=== PATIENT | female | born 1955 | race Caucasian/White ===

== ENCOUNTER 2016-12-28 10:37 | Emergency (ER) | payer OTHER ==
--- NOTE | 2016-12-28 11:30 | Emergency Department Record ---
History of Present Illness - General Chief complaint: Nausea, Vomiting, Diarrhea Stated complaint: LOOSE STOOLS Time Seen by Provider: 12/28/16 11:14 Source: Patient, RN notes reviewed Mode of Arrival: Ambulatory - History of Present Illness Initial comments: abdominal pain and diarrhea and seen at [facility] and BP was low. the diarrhea started 3 days ago 10-20times per day and abdominal cramping and upset stomach. PSH gallbladder,appendectomy. MD complaint: Diarrhea Onset/Timin -: Days(s) Description of Vomiting: Watery Associated Abdominal Pain: Yes Location: Periumbilcal Radiation: None Severity: Severe Quality: Cramping Consistency: Constant Improves with: None Worsens with: None Associated Symptoms: Headaches, Loss of appetite, Nausea/vomiting - Related Data Home Medications Medication Instructions Recorded Confirmed Last Taken Aspirin [Aspirin EC] 81 mg PO DAILY 08/20/14 12/28/16 12/27/16 Atorvastatin Calcium [Lipitor] 10 mg PO DAILY 08/20/14 12/28/16 12/27/16 Metformin HCl [Glucophage Ir] 500 mg PO DAILYWM 07/17/16 12/28/16 12/27/16 Previous Rx's Medication Instructions Recorded Olmesartan/Hydrochlorothiazide 0.5 each PO DAILY #30 tablet 04/08/15 [Benicar Hct 20-12.5 mg Tablet] Allergies Allergy/AdvReac Type Severity Reaction Status Date / Time No Known Drug Allergies Allergy Verified 12/28/16 10:45 Travel Screening - Travel/Exposure Within Last 30 Days Have you traveled within the last 30 days?: No Review of Systems Reviewed: No additional complaints except as noted below Constitutional: Reports: As per HPI. Denies: Chills, Fever, Malaise, Night sweats, Weakness, Weight change Eyes: Reports: As per HPI. Denies: Eye discharge, Eye pain, Photophobia, Vision change ENT: Reports: As per HPI. Denies: Congestion, Dental pain, Ear pain, Epistaxis , Hearing loss, Throat pain Respiratory: Reports: As per HPI. Denies: Cough, Dyspnea, Hemoptysis, Stridor, Wheezes Cardiovascular: Reports: As per HPI. Denies: Arrhythmia, Chest pain, Dyspnea on exertion, Edema, Murmurs, Orthopnea, Palpitations, Paroxysmal nocturnal dyspnea, Rheumatic Fever, Syncope Endocrine: Reports: As per HPI. Denies: Fatigue, Heat or cold intolerance, Polydipsia, Polyuria Gastrointestinal: Reports: As per HPI, Diarrhea, Nausea. Denies: Abdominal pain , Constipation, Hematemesis, Hematochezia, Melena, Vomiting Genitourinary: Reports: As per HPI. Denies: Abnormal menses, Discharge, Dyspareunia, Dysuria, Frequency, Hematuria, Incontinence, Retention, Urgency Musculoskeletal: Reports: As per HPI. Denies: Arthralgia, Back pain, Gout, Joint swelling, Myalgia, Neck pain Skin: Reports: As per HPI. Denies: Bruising, Change in color, Change in hair/ nails, Lesions, Pruritus, Rash Neurological: Reports: As per HPI. Denies: Abnormal gait, Confusion, Headache, Numbness, Paresthesias, Seizure, Tingling, Tremors, Vertigo, Weakness Psychiatric: Reports: As per HPI. Denies: Anxiety, Auditory hallucinations, Depression, Homicidal thoughts, Suicidal thoughts, Visual hallucinations Hematological/Lymphatic: Reports: As per HPI. Denies: Anemia, Blood Clots, Easy bleeding, Easy bruising, Swollen glands Past Medical History - SOCIAL HISTORY Smoking Status: Former smoker Alcohol Use: None Drug Use: None - RESPIRATORY Hx Respiratory Disorders: No - CARDIOVASCULAR Hx Cardio Disorders: Yes Hx Hypertension: Yes Comment:: hypercholesteremia - NEURO Hx Neuro Disorders: No - GI Hx GI Disorders: No - Hx Genitourinary Disorders: No - ENDOCRINE Hx Endocrine Disorders: Yes Hx Diabetes: Yes (NIIDDM) - MUSCULOSKELETAL Hx Musculoskeletal Disorders: No - PSYCH Hx Psych Problems: No - HEMATOLOGY/ONCOLOGY Hx Hematology/Oncology Disorders: No Family Medical History Any Significant Family History?: Yes Hx Cancer: Brother/Sister Hx Heart Disease: Father Physical Exam - General General Appearance: Alert, Oriented x3, Cooperative, No acute distress - Head Head exam: Normal inspection - Eye Eye exam: Normal appearance, PERRL Pupils: Normal accommodation - ENT ENT exam: Normal exam, Mucous membranes moist, Normal external ear exam, Normal orophraynx, TM's normal bilaterally Ear exam: Normal external inspection. negative: External canal tenderness Nasal Exam: Normal inspection. negative: Discharge, Sinus tenderness Mouth exam: Normal external inspection, Tongue normal Teeth exam: Normal inspection. negative: Dental caries Throat exam: Normal inspection. negative: Tonsillar erythema, Tonsillar exudate - Neck Neck exam: Normal inspection, Full ROM. negative: Tenderness - Respiratory Respiratory exam: Normal lung sounds bilaterally. negative: Respiratory distress - Cardiovascular Cardiovascular Exam: Regular rate, Normal rhythm, Normal heart sounds - GI/Abdominal GI/Abdominal exam: Soft, Normal bowel sounds. negative: Tenderness - Rectal Rectal exam: Deferred - exam: Deferred - Extremities Extremities exam: Normal inspection, Full ROM, Normal capillary refill. negative: Tenderness - Back Back exam: Reports: Normal inspection, Full ROM. Denies: Muscle spasm, Rash noted, Tenderness - Neurological Neurological exam: Alert, Normal gait, Oriented X3, Reflexes normal - Psychiatric Psychiatric exam: Normal affect, Normal mood - Skin Skin exam: Dry, Intact, Normal color, Warm Course Vital Signs 12/28/16 10:41 Temperature 97.5 F L Pulse Rate 93 H Respiratory 22 Rate Blood Pressure 82/57 Pulse Ox 95 Medical Decision Making - Data Complexity MDM Data: Labs Ordered and/or Reviewed (rotovirus positive) - Lab Data Result diagrams: 12/28/16 10:50 12/28/16 10:50 Disposition Clinical Impression: Gastroenteritis Disposition: Home, Self-Care Condition: (1) Good Instructions: Acute Nausea and Vomiting (ED), Gastroenteritis (ED) Additional Instructions: follow up with family push fluids and bland diet Forms: Patient Portal Access Time of Disposition: 13:32
[2016-12-28] MEDS ORDERED: ONDANSETRON HCL IV 4 MG/2 ML VIAL IV ONE (11:39)
[2016-12-28] MEDS ORDERED: 0.9 % SODIUM CHLORIDE 1,000 ML BAG IV ONE (11:39)
[2016-12-28 11:51] LABS: BASO % 0.4 % (0-6); GRAN % 75.4 % (47-80); HEMATOCRIT 44.2 % (35.0-47.0); HEMOGLOBIN 14.8 gm/dl (11.6-16.0); LYMPH % 13.5 % (16-45); MEAN CELL VOLUME 83.6 fl (81-97); MEAN CORPUSCULAR HGB CONC 33.5 g/dl (32-36); MEAN PLATELET VOLUME 9.8 fl (7.4-10.4); MONO % 8.7 % (0-9); PLATELET COUNT 297 K/uL (130-400); RED BLOOD COUNT 5.29 M/uL (3.80-5.40); WHITE BLOOD COUNT W/O DIFF 7.1 K/uL (4.2-12.2)
[2016-12-28 12:02] LABS: ALBUMIN 4.6 gm/dL (3.5-5.0); ANION GAP 15.7 (7-16); BILIRUBIN,TOTAL 0.66 mg/dL (0.2-1.3); CARBON DIOXIDE 16.3 mmol/L (22-30); CREATININE 1.5 mg/dL (0.52-1.04); TOTAL PROTEIN 8.1 gm/dL (6.3-8.2)
[2016-12-28] MEDS ORDERED: POTASSIUM CHLORIDE 20 MEQ TABLET PO ONE (13:28)
--- NOTE | 2016-12-28 14:35 | Emergency Department Record ---
History of Present Illness - General Chief complaint: Nausea, Vomiting, Diarrhea Stated complaint: LOOSE STOOLS Time Seen by Provider: 12/28/16 11:14 Source: Patient, RN notes reviewed Mode of Arrival: Ambulatory - History of Present Illness complaint: Diarrhea Onset/Timin -: Days(s) Description of Vomiting: Watery Associated Abdominal Pain: Yes Location: Periumbilcal Radiation: None Severity: Severe Quality: Cramping Consistency: Constant Improves with: None Worsens with: None Associated Symptoms: Headaches, Loss of appetite, Nausea/vomiting - Related Data Home Medications Medication Instructions Recorded Confirmed Last Taken Aspirin [Aspirin EC] 81 mg PO DAILY 08/20/14 12/28/16 12/27/16 Atorvastatin Calcium [Lipitor] 10 mg PO DAILY 08/20/14 12/28/16 12/27/16 Metformin HCl [Glucophage Ir] 500 mg PO DAILYWM 07/17/16 12/28/16 12/27/16 Previous Rx's Medication Instructions Recorded Olmesartan/Hydrochlorothiazide 0.5 each PO DAILY #30 tablet 04/08/15 [Benicar Hct 20-12.5 mg Tablet] Promethazine HCl [Phenergan] 12.5 mg PO Q6HR #6 tablet 12/28/16 Allergies Allergy/AdvReac Type Severity Reaction Status Date / Time No Known Drug Allergies Allergy Verified 12/28/16 10:45 Travel Screening - Travel/Exposure Within Last 30 Days Have you traveled within the last 30 days?: No Review of Systems Constitutional: Reports: As per HPI. Denies: Chills, Fever, Malaise, Night sweats, Weakness, Weight change Eyes: Reports: As per HPI. Denies: Eye discharge, Eye pain, Photophobia, Vision change ENT: Reports: As per HPI. Denies: Congestion, Dental pain, Ear pain, Epistaxis , Hearing loss, Throat pain Respiratory: Reports: As per HPI. Denies: Cough, Dyspnea, Hemoptysis, Stridor, Wheezes Cardiovascular: Reports: As per HPI. Denies: Arrhythmia, Chest pain, Dyspnea on exertion, Edema, Murmurs, Orthopnea, Palpitations, Paroxysmal nocturnal dyspnea, Rheumatic Fever, Syncope Endocrine: Reports: As per HPI. Denies: Fatigue, Heat or cold intolerance, Polydipsia, Polyuria Gastrointestinal: Reports: As per HPI, Diarrhea, Nausea. Denies: Abdominal pain , Constipation, Hematemesis, Hematochezia, Melena, Vomiting Genitourinary: Reports: As per HPI. Denies: Abnormal menses, Discharge, Dyspareunia, Dysuria, Frequency, Hematuria, Incontinence, Retention, Urgency Musculoskeletal: Reports: As per HPI. Denies: Arthralgia, Back pain, Gout, Joint swelling, Myalgia, Neck pain Skin: Reports: As per HPI. Denies: Bruising, Change in color, Change in hair/ nails, Lesions, Pruritus, Rash Neurological: Reports: As per HPI. Denies: Abnormal gait, Confusion, Headache, Numbness, Paresthesias, Seizure, Tingling, Tremors, Vertigo, Weakness Psychiatric: Reports: As per HPI. Denies: Anxiety, Auditory hallucinations, Depression, Homicidal thoughts, Suicidal thoughts, Visual hallucinations Hematological/Lymphatic: Reports: As per HPI. Denies: Anemia, Blood Clots, Easy bleeding, Easy bruising, Swollen glands Past Medical History - SOCIAL HISTORY Smoking Status: Former smoker Alcohol Use: None Drug Use: None - RESPIRATORY Hx Respiratory Disorders: No - CARDIOVASCULAR Hx Cardio Disorders: Yes Hx Hypertension: Yes Comment:: hypercholesteremia - NEURO Hx Neuro Disorders: No - GI Hx GI Disorders: No - Hx Genitourinary Disorders: No - ENDOCRINE Hx Endocrine Disorders: Yes Hx Diabetes: Yes (NIIDDM) - MUSCULOSKELETAL Hx Musculoskeletal Disorders: No - PSYCH Hx Psych Problems: No - HEMATOLOGY/ONCOLOGY Hx Hematology/Oncology Disorders: No Family Medical History Any Significant Family History?: Yes Hx Cancer: Brother/Sister Hx Heart Disease: Father Course Vital Signs 12/28/16 12/28/16 12/28/16 10:41 11:57 13:59 Temperature 97.5 F L 98.1 F Pulse Rate 93 H 74 Pulse Rate [ 83 Pulse Ox Probe] Respiratory 22 22 20 Rate Blood Pressure 82/57 103/58 Blood Pressure 109/58 [Left Arm] Pulse Ox 95 97 96 Medical Decision Making - Lab Data Result diagrams: 12/28/16 10:50 12/28/16 10:50 Lab Results 12/28/16 12/28/16 12/28/16 Range/Units 10:50 10:50 11:56 WBC 7.1 (4.2-12.2) K/uL RBC 5.29 (3.80-5.40) M/uL Hgb 14.8 (11.6-16.0) gm/dl Hct 44.2 (35.0-47.0) % MCV 83.6 (81-97) fl MCH 28.0 (27-33) pg MCHC 33.5 (32-36) g/dl RDW 14.0 (11.5-14.5) % Plt Count 297 (130-400) K/uL MPV 9.8 (7.4-10.4) fl Gran % 75.4 (47-80) % Lymphocytes % 13.5 L (16-45) % Monocytes % 8.7 (0-9) % Eosinophils % 2.0 (0-6) % Basophils % 0.4 (0-6) % Sodium 134 L (136-145) mmol/L Potassium 3.4 L (3.5-5.1) mmol/L Chloride 102 (98-107) mmol/L Carbon Dioxide 16.3 L (22-30) mmol/L Anion Gap 15.7 (7-16) BUN 24 H (7-17) mg/dL Creatinine 1.5 H (0.52-1.04) mg/dL Estimated GFR 38 ml/min Random Glucose 105 (70-110) mg/dL Calcium 9.1 (8.5-10.1) mg/dL Total Bilirubin 0.66 (0.2-1.3) mg/dL Direct Bilirubin 0.0 (0-0.3) mg/dL AST 45 H (14-36) U/L ALT 58 H (9-52) U/L Alkaline Phosphatase 107 (38-126) U/L Total Protein 8.1 (6.3-8.2) gm/dL Albumin 4.6 (3.5-5.0) gm/dL Lipase 130 (23-300) U/L Rotavirus Antigen Detected (NOT DETECT) Disposition Clinical Impression: Gastroenteritis Disposition: Home, Self-Care Condition: (1) Good Instructions: Gastroenteritis (ED), Acute Nausea and Vomiting (ED) Additional Instructions: follow up with family Dr. beltran fluids and bland diet Prescriptions: Promethazine HCl [Phenergan] 12.5 mg PO Q6HR #6 tablet Forms: Patient Portal Access Time of Disposition: 14:35
== END 2016-12-28 14:18 | disposition home or self-care (01) ==
LOC: ER 10:37
DX: K52.9 Noninfective gastroenteritis and colitis, unspecified (principal); R11.2 Nausea with vomiting, unspecified; R51 Headache
CPT/HCPCS: 99284 ×2; 96374; 96361; 83690; 85025; 80076; 80048; 87425; 87427; J2405; J7030

== ENCOUNTER 2016-12-29 22:13 | Observation (INO) | payer OTHER ==
[2016-12-29] MEDS ORDERED: ONDANSETRON HCL IV 4 MG/2 ML VIAL IVP ONE ×2 (22:29→23:54)
[2016-12-29] MEDS ORDERED: 0.9 % SODIUM CHLORIDE 1,000 ML BAG IV ONE (22:29)
--- NOTE | 2016-12-29 22:34 | Emergency Department Record ---
History of Present Illness - General Chief complaint: Nausea, Vomiting, Diarrhea Stated complaint: DIARRHEA,VOMITING Source: Patient, Family Mode of Arrival: Ambulatory Limitations: No limitations - History of Present Illness Initial comments: 61 yo female presents with nausea, some vomiting and frequent diarrhea that started on Monday. The symptoms have been very constant. No blood in the stools. She was seen in the ER yesterday and had labs, stool studies, IVF. She tested positive for ROTAVIRUS. After DC from the ED her symptoms persisted with frequent loose stools. Her PO intake is fairly minimal. No appetite. No fever. Her grand daughter had mild diarrhea last week. Her symptoms lasted 2 days. She was sent home with phenergan but not tolerating PO. She has crampy pain that radiates to the back. MD complaint: Diarrhea, Nausea, Vomiting -: Days(s) (5) Description of Vomiting: Watery Description of Diarrhea: Water Location: Diffuse Radiation: None Severity: Moderate Quality: Cramping Consistency: Constant Improves with: None Worsens with: Eating Context: Sick contacts Associated Symptoms: Loss of appetite, Nausea/vomiting - Related Data Home Medications Medication Instructions Recorded Confirmed Last Taken Aspirin [Aspirin EC] 81 mg PO DAILY 08/20/14 12/29/16 12/27/16 Atorvastatin Calcium [Lipitor] 10 mg PO DAILY 08/20/14 12/29/16 12/27/16 Metformin HCl [Glucophage Ir] 500 mg PO DAILYWM 07/17/16 12/29/16 12/27/16 Previous Rx's Medication Instructions Recorded Olmesartan/Hydrochlorothiazide 0.5 each PO DAILY #30 tablet 04/08/15 [Benicar Hct 20-12.5 mg Tablet] Promethazine HCl [Phenergan] 12.5 mg PO Q6HR #6 tablet 12/28/16 Allergies Allergy/AdvReac Type Severity Reaction Status Date / Time No Known Drug Allergies Allergy Verified 12/28/16 10:45 Review of Systems Constitutional: Reports: Malaise, Weakness. Denies: Chills, Fever Eyes: Denies: Eye discharge, Eye pain, Photophobia, Vision change ENT: Denies: Congestion, Throat pain Respiratory: Denies: Cough, Dyspnea, Hemoptysis, Stridor, Wheezes Cardiovascular: Denies: Chest pain, Palpitations, Syncope Endocrine: Reports: Fatigue. Denies: Polydipsia, Polyuria Gastrointestinal: Reports: Abdominal pain, Diarrhea, Nausea, Vomiting. Denies: Constipation, Hematemesis, Hematochezia, Melena Genitourinary: Denies: Dysuria, Urgency Musculoskeletal: Denies: Arthralgia, Back pain, Joint swelling, Myalgia, Neck pain Skin: Denies: Bruising, Change in color, Rash Neurological: Denies: Confusion, Headache, Weakness Psychiatric: Denies: Anxiety Hematological/Lymphatic: Denies: Blood Clots, Easy bleeding, Easy bruising, Swollen glands Past Medical History - SOCIAL HISTORY Smoking Status: Former smoker Drug Use: None - RESPIRATORY Hx Respiratory Disorders: No - CARDIOVASCULAR Hx Cardio Disorders: Yes Hx Hypertension: Yes Comment:: hypercholesteremia - NEURO Hx Neuro Disorders: No - GI Hx GI Disorders: No - Hx Genitourinary Disorders: No - ENDOCRINE Hx Endocrine Disorders: Yes Hx Diabetes: Yes (NIIDDM) - MUSCULOSKELETAL Hx Musculoskeletal Disorders: No - PSYCH Hx Psych Problems: No - HEMATOLOGY/ONCOLOGY Hx Hematology/Oncology Disorders: No Family Medical History Hx Cancer: Brother/Sister Hx Heart Disease: Father Physical Exam - General General Appearance: Alert, Oriented x3, Cooperative, No acute distress Limitations: No limitations - Head Head exam: Atraumatic, Normal inspection - Eye Eye exam: Normal appearance, PERRL. negative: Conjunctival injection, Periorbital swelling - ENT ENT exam: Normal exam, Mucous membranes moist, Normal external ear exam, Normal orophraynx Ear exam: Normal external inspection. negative: External canal tenderness Nasal Exam: Normal inspection. negative: Discharge, Sinus tenderness Mouth exam: Normal external inspection, Tongue normal Teeth exam: Normal inspection. negative: Dental caries Throat exam: Normal inspection. negative: Tonsillar erythema, Tonsillar exudate - Neck Neck exam: Normal inspection, Full ROM. negative: Tenderness - Respiratory Respiratory exam: Normal lung sounds bilaterally. negative: Respiratory distress - Cardiovascular Cardiovascular Exam: Regular rate, Normal rhythm, Normal heart sounds - GI/Abdominal GI/Abdominal exam: Soft, Tenderness. negative: Distended, Guarding, Rebound, Rigid - Rectal Rectal exam: Deferred - exam: Deferred - Extremities Extremities exam: Normal inspection, Full ROM, Normal capillary refill. negative: Tenderness - Back Back exam: Reports: Normal inspection, Full ROM. Denies: Muscle spasm, Rash noted, Tenderness - Neurological Neurological exam: Alert, Normal gait, Oriented X3 - Psychiatric Psychiatric exam: Normal affect, Normal mood. negative: Agitated, Anxious - Skin Skin exam: Dry, Intact, Normal color, Warm Course - Reevaluation(s) Reevaluation #1: the labs were reviewed no acute changes on the CBC The HCO# on the CMP is still low at 16 Today's renal function is improved with Cr of 0.9, but BUN elevated at 19 She has some pain so CT scan ordered as well. The likely plan is admission for continued supportive care for positive Rotavirus enteritis. 12/29/16 23:44 Reevaluation #2: CT CW enteritis. No other acute changes 12/30/16 00:49 Medical Decision Making - Lab Data Result diagrams: 12/29/16 22:55 12/29/16 22:35 Disposition Disposition: Admit Clinical Impression: Dehydration, Rotavirus enteritis Diarrhea Qualifiers: Diarrhea type: unspecified type Qualified Code(s): R19.7 - Diarrhea, unspecified Disposition: Still a Patient at [facility] Decision to Admit: Admit from ER Decision to Admit Date: 12/29/16 Decision to Admit Time: 23:46 Condition: (2) Stable Forms: Patient Portal Access Time of Disposition: 23:46
[2016-12-29] MEDS ORDERED: MORPHINE SULFATE 5 MG/ML PFS IVP ONE (22:46)
[2016-12-29 23:03] LABS: ALB/GLOB RATIO 1.4 (1.1-1.8); ALBUMIN 4.1 gm/dL (3.5-5.0); ALKALINE PHOSPHATASE 93 U/L (38-126); ALT/SGPT 70 U/L (9-52); ANION GAP 11.8 (7-16); AST/SGOT 45 U/L (14-36); BLOOD UREA NITROGEN 19 mg/dL (7-17); CARBON DIOXIDE 16.2 mmol/L (22-30); CREATININE 0.9 mg/dL (0.52-1.04); EST GLOMERULAR FILTRATION RATE > 60 ml/min; GLUCOSE,RANDOM 99 mg/dL (70-110)
[2016-12-29 23:08] LABS: BASO % 0.4 % (0-6); EOS % 2.2 % (0-6); GRAN % 63.8 % (47-80); HEMATOCRIT 39.3 % (35.0-47.0); LYMPH % 24.3 % (16-45); MEAN CELL VOLUME 82.7 fl (81-97); MEAN CORPUSCULAR HEMOGLOBIN 27.4 pg (27-33); MEAN CORPUSCULAR HGB CONC 33.1 g/dl (32-36); MONO % 9.3 % (0-9); PLATELET COUNT 282 K/uL (130-400); RED BLOOD COUNT 4.75 M/uL (3.80-5.40); RED CELL DISTRIBUTION WIDTH 13.8 % (11.5-14.5); WHITE BLOOD COUNT W/O DIFF 7.2 K/uL (4.2-12.2)
[2016-12-29] MEDS ORDERED: HYDROMORPHONE HCL 1 MG/ML CPJ IVP ONE (23:31)
[2016-12-30] MEDS ORDERED: DEXTROSE 5%-LACTATED RINGERS 1,000 ML IV PRN (01:16)
[2016-12-30] MEDS ORDERED: ONDANSETRON HCL IV 4 MG/2 ML VIAL IVP PRN (01:16)
[2016-12-30] MEDS ORDERED: HYDROMORPHONE HCL 1 MG/ML CPJ IVP PRN (01:16)
[2016-12-30 07:06] LABS: ALB/GLOB RATIO 1.2 (1.1-1.8); ALKALINE PHOSPHATASE 68 U/L (38-126); ALT/SGPT 56 U/L (9-52); ANION GAP 9.7 (7-16); AST/SGOT 31 U/L (14-36); BILIRUBIN,TOTAL 0.31 mg/dL (0.2-1.3); BLOOD UREA NITROGEN 14 mg/dL (7-17); CARBON DIOXIDE 16.3 mmol/L (22-30); CREATININE 0.8 mg/dL (0.52-1.04); EST GLOMERULAR FILTRATION RATE > 60 ml/min; GLUCOSE,RANDOM 103 mg/dL (70-110); TOTAL PROTEIN 5.6 gm/dL (6.3-8.2)
--- NOTE | 2016-12-30 08:06 | CT SCAN REPORT ---
EXAM: CT OF THE ABDOMEN AND PELVIS WITHOUT CONTRAST HISTORY: ABDOMINAL PAIN AND NAUSEA. TECHNIQUE: CT of the abdomen and pelvis was performed without oral or IV contrast. This limits evaluation of bowel and solid visceral organs. Comparison: None. FINDINGS: Limited evaluation of the lung bases is unremarkable. The osseous structures are grossly intact. Status post cholecystectomy. Fatty infiltrative change to the liver. The spleen, adrenal glands, and pancreas are unremarkable. Malrotation/incomplete rotation of the right kidney. There is an approximately 3 mm calculus in the region of the right renal pelvis without significant hydronephrosis. Status post hysterectomy and appendectomy. No gross evidence for bowel obstruction. No free air or free fluid. Nondilated fluid filled loops of colon are noted. No abdominal or pelvic adenopathy. Minor haziness of the central abdominal mesentery with several nonspecific nonenlarged central mesenteric lymph nodes. This could relate to mild mesenteric adenitis in the appropriate clinical setting. IMPRESSION: 1. 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 THIS DOES NOT CAUSE SIGNIFICANT HYDRONEPHROSIS. 2. POST SURGICAL CHANGES, ABOVE. 3. MILD HAZINESS OF THE CENTRAL ABDOMINAL MESENTERY WITH A FEW NONENLARGED MESENTERIC NODES. FINDINGS COULD RELATE TO MESENTERIC ADENITIS IN THE APPROPRIATE CLINICAL SETTING. JOB NUMBER: [id number] [facility]
--- NOTE | 2016-12-30 08:11 | History & Physical ---
History of Present Illness - Date of Service Date of Service for History & Physical: 12/30/16 - History of Present Illness Admitting Diagnosis: Rotavirus diarrhea, dehydration History of Present Illness: 61yo female with CC of diarrhea with nausea. She has history of htn, high cholesterol, t2dm. Patient presented to the ED with persistent diarrhea and vomiting since Monday. She had been seen the previous day in the ED and found to be rotavirus positive. she was sent home with phenergan but was not able to tolerate clear liquids and diarrhea continued to be uncontrolled so returned to ED today. While in the ED, patient had vitals within normal range. Her CBC was unremarkable. CMP showed persistently low bicarb at 16.2. Sodium had improved to 136 from the previous day (132). CT abdomen showed some changes consistent with enteritis. She was given zofran and started on IV fluid resuscitation with dextrose 5% with LR at 125cc/hr and admitted for dehydration 2/2 rotavirus enteritis. 12/30/16- She states she is feeling 100% better today. Says she had a normal bowel movement this morning for the first time in 5 days. She is no longer nauseated and was able to eat all of her clear liquid breakfast. She denies any vomiting, abdominal pain, sweating, or weakness. No one else is sick at home. She had not been able to take any of her medications the past few days due to the nausea. says the zofran seems to be working a lot better than the phenergan. Has an appointment scheduled with her pcp next Monday. PCP: [facility] Screening - Travel/Exposure Within Last 30 Days Have you traveled within the last 30 days?: No - Travel/Exposure Within Last Year Have you traveled outside the [place] in the last year?: No - Additonal Travel Details Have you been exposed to anyone with a communicable illness?: No Review of Systems Constitutional: Denies: Chills, Fever, Malaise, Weakness Eyes: Denies: Eye discharge, Eye pain, Photophobia, Vision change ENT: Denies: Congestion, Throat pain Respiratory: Denies: Cough, Dyspnea, Hemoptysis, Stridor, Wheezes Cardiovascular: Denies: Chest pain, Palpitations, Syncope Endocrine: Denies: Fatigue, Polydipsia, Polyuria Gastrointestinal: Reports: Diarrhea, Nausea. Denies: Abdominal pain, Constipation, Hematemesis, Hematochezia, Melena Genitourinary: Denies: Dysuria, Urgency Musculoskeletal: Denies: Arthralgia, Back pain, Joint swelling, Myalgia, Neck pain Skin: Denies: Bruising, Change in color, Rash Neurological: Denies: Confusion, Headache, Weakness Psychiatric: Denies: Anxiety Hematological/Lymphatic: Denies: Blood Clots, Easy bleeding, Easy bruising, Swollen glands Past Medical History - SOCIAL HISTORY Smoking Status: Former smoker Alcohol Use: None Drug Use: None - RESPIRATORY Hx Respiratory Disorders: No - CARDIOVASCULAR Hx Cardio Disorders: Yes Hx Hypertension: Yes Comment:: hypercholesteremia - NEURO Hx Neuro Disorders: No - GI Hx GI Disorders: No - Hx Genitourinary Disorders: No - ENDOCRINE Hx Endocrine Disorders: Yes Hx Diabetes: Yes (NIIDDM) - MUSCULOSKELETAL Hx Musculoskeletal Disorders: No - PSYCH Hx Psych Problems: No - HEMATOLOGY/ONCOLOGY Hx Hematology/Oncology Disorders: No Family Medical History Any Significant Family History?: Yes Hx Cancer: Brother/Sister Hx Heart Disease: Father H&P Meds/Allergies - Allergies Allergies: Allergies Allergy/AdvReac Type Severity Reaction Status Date / Time morphine AdvReac NAUSEA Verified 12/30/16 01:32 - Home Medications Home Medications Medication Instructions Recorded Confirmed Last Taken Aspirin [Aspirin EC] 81 mg PO DAILY 08/20/14 12/29/16 12/27/16 Atorvastatin Calcium [Lipitor] 10 mg PO DAILY 08/20/14 12/29/16 12/27/16 Metformin HCl [Glucophage Ir] 500 mg PO DAILYWM 07/17/16 12/29/16 12/27/16 Previous Rx's Medication Instructions Recorded Olmesartan/Hydrochlorothiazide 0.5 each PO DAILY #30 tablet 04/08/15 [Benicar Hct 20-12.5 mg Tablet] Promethazine HCl [Phenergan] 12.5 mg PO Q6HR #6 tablet 12/28/16 - Active Medications Active Medications: Current Medications Aspirin (Ecotrin (Ec)) 81 mg PO DAILY [facility] Atorvastatin Calcium (Lipitor) 10 mg PO DAILY [facility] Hydrochlorothiazide (Hctz 25mg) 6.25 mg PO DAILY [facility] Hydromorphone HCl (Dilaudid) 0.5 mg IVP Q4H PRN PRN Reason: Pain - General Dextrose/Lactated Ringer's () 1,000 mls @ 125 mls/hr IV .Q8H PRN PRN Reason: LARGE VOLUME IV Last Admin: 12/30/16 01:36 Dose: 125 mls/hr Losartan Potassium (Cozaar) 50 mg PO DAILY [facility] Ondansetron HCl (Zofran) 4 mg IVP Q4H PRN PRN Reason: NAUSEA Physical Exam - Vital Signs Vital Signs: Vital Signs - Last 24 Hrs Temp Pulse Resp BP Pulse Ox 12/30/16 04:23 97.2 F L 12/30/16 01:59 68 12/30/16 01:16 96.0 F L 66 20 108/58 95 - General General Appearance: Alert, Oriented x3, Cooperative, No acute distress Limitations: No limitations - Head Head exam: Atraumatic, Normal inspection - Eye Eye exam: Normal appearance, PERRL. negative: Conjunctival injection, Periorbital swelling - ENT ENT exam: Normal exam, Mucous membranes moist, Normal external ear exam, Normal orophraynx Ear exam: Normal external inspection. negative: External canal tenderness Nasal Exam: Normal inspection. negative: Discharge, Sinus tenderness Mouth exam: Normal external inspection, Tongue normal Teeth exam: Normal inspection. negative: Dental caries Throat exam: Normal inspection. negative: Tonsillar erythema, Tonsillar exudate - Neck Neck exam: Normal inspection, Full ROM. negative: Tenderness - Respiratory Respiratory exam: Normal lung sounds bilaterally. negative: Respiratory distress - Cardiovascular Cardiovascular Exam: Regular rate, Normal rhythm, Normal heart sounds - GI/Abdominal GI/Abdominal exam: Soft, Normal bowel sounds. negative: Distended, Guarding, Rebound, Rigid, Tenderness - Rectal Rectal exam: Deferred - exam: Deferred - Extremities Extremities exam: Normal inspection, Full ROM, Normal capillary refill. negative: Tenderness - Back Back exam: Reports: Normal inspection, Full ROM. Denies: Muscle spasm, Rash noted, Tenderness - Neurological Neurological exam: Alert, Normal gait, Oriented X3 - Psychiatric Psychiatric exam: Normal affect, Normal mood. negative: Agitated, Anxious - Skin Skin exam: Dry, Intact, Normal color, Warm Results - Labs Result Diagrams: 12/29/16 22:55 12/30/16 06:21 Labs Last 24 Hours: Laboratory Results - last 24 hr 12/30/16 06:21 Sodium 136 Potassium 3.6 Chloride 110 H Carbon Dioxide 16.3 L Anion Gap 9.7 BUN 14 Creatinine 0.8 Estimated GFR > 60 Random Glucose 103 Calcium 7.7 L Total Bilirubin 0.31 AST 31 ALT 56 H Alkaline Phosphatase 68 Total Protein 5.6 L Albumin 3.0 L Globulin 2.6 Albumin/Globulin Ratio 1.2 VTE H&P Assessment - Risk for VTE Risk for VTE: No Risk Level: Low Risk Assessment Date: 12/30/16 Risk Assessment Time: 11:40 VTE Orders Placed or Will Be Placed: Yes Plan - Inpatient Certification Inpatient Certification: Admit to inpatient care: Based on my medical assessment, after consideration of patient's risk factors (age, co-morbidities and patient presenting symptoms and acuity), I expect that this patient will remain in the hospital greater than or equal to two midnights and that the services needed warrant inpatient care because: Patient Risk Factors: [] Estimated length of stay: [] The patient may reasonably be expected to be discharged or transferred to a hospital within 96 hours after admission to [facility]. Services needed: [] Post hospital care (if known): [] I certify that my determination is in accordance with my understanding of Medicare requirements for reasonable and necessary inpatient services. - Detailed Diagnosis and Plan (1) Rotavirus enteritis Current Visit: Yes Status: Acute Base Code: A08.0 - ROTAVIRAL ENTERITIS Comment: 12/30/16- Improved. She had normal BM today and nausea has resolved. She denies any abdominal pain. Tolerated clear liquid diet this morning. stool positive for rotavirus. Ct abdomen findings that could be consistent wtih mesenteric adenitis but no obstruction, dilated loops. -advance diet as tolerating -continue IV LR at 125 cc/hr -vitals q8H (2) Electrolyte abnormality Current Visit: Yes Status: Acute Base Code: E87.8 - OTH DISORDERS OF ELECTROLYTE AND FLUID BALANCE, NEC Comment: 12/30/16-improved. Sodium 136 up from 132. bicarb improved slightly to 16.3. suspect this will continue to improve now that diarrhea has subsided. -continue to advance diet -patient has follow up wtih pcp ba on monday. will plan to give order for outpatient labs to be done prior to that appointment. (3) Diabetes mellitus type 2, noninsulin dependent Current Visit: No Status: Acute Base Code: E11.9 - TYPE 2 DIABETES MELLITUS WITHOUT COMPLICATIONS Comment: 12/30/16- Will continue to hold metformin at this time to avoid exacerbating GI symptoms. -Will have her re-start metformin once she is tolerating full diet again. (4) Full code status Current Visit: No Status: Acute Base Code: Z78.9 - OTHER SPECIFIED HEALTH STATUS Comment: 12/30/16- patient remains full code (5) DVT prophylaxis Current Visit: No Status: Acute Base Code: [id number] - Comment: 12/30/16- Patient at increased risk with age and restricted mobility. -will order lovenox 40mg sq daily
[2016-12-30] MEDS ORDERED: RINGERS SOLUTION,LACTATED 1,000 ML IV SCH (10:00)
[2016-12-30] MEDS: ATORVASTATIN 20 MG TABLET PO SCH ×2 (10:07→14:03)
[2016-12-30] MEDS: HYDROCHLOROTHIAZIDE 25 MG TABLET PO SCH ×2 (10:08→14:03)
[2016-12-30] MEDS: ASPIRIN 81 MG TABEC PO SCH ×2 (10:09→14:02)
[2016-12-30] MEDS: LOSARTAN POTASSIUM 25 MG TABLET PO SCH ×2 (10:09→14:01)
[2016-12-30] MEDS ORDERED: CYCLOBENZAPRINE 10MG TABLET PO ONE (11:20)
--- NOTE | 2016-12-30 13:00 | Discharge Summary ---
Providers Discharge Summary Date: 12/30/16 Date of admission: 12/30/16 00:56 Expected Date of Discharge: 12/30/16 Attending physician: COTY MARTINEZ Primary care physician: AURELIO MORILLO D.O. Physical Exam - Vital Signs Vital Signs: Vital Signs - Last 24 Hrs Temp Pulse Resp BP Pulse Ox 12/30/16 08:22 20 12/30/16 04:23 97.2 F L 12/30/16 01:59 68 12/30/16 01:16 96.0 F L 66 20 108/58 95 - General General Appearance: Alert, Oriented x3, Cooperative, No acute distress Limitations: No limitations - Head Head exam: Atraumatic, Normal inspection - Eye Eye exam: Normal appearance, PERRL. negative: Conjunctival injection, Periorbital swelling - ENT ENT exam: Normal exam, Mucous membranes moist, Normal external ear exam, Normal orophraynx Ear exam: Normal external inspection. negative: External canal tenderness Nasal Exam: Normal inspection. negative: Discharge, Sinus tenderness Mouth exam: Normal external inspection, Tongue normal Teeth exam: Normal inspection. negative: Dental caries Throat exam: Normal inspection. negative: Tonsillar erythema, Tonsillar exudate - Neck Neck exam: Normal inspection, Full ROM. negative: Tenderness - Respiratory Respiratory exam: Normal lung sounds bilaterally. negative: Respiratory distress - Cardiovascular Cardiovascular Exam: Regular rate, Normal rhythm, Normal heart sounds - GI/Abdominal GI/Abdominal exam: Soft, Normal bowel sounds. negative: Distended, Guarding, Rebound, Rigid, Tenderness - Rectal Rectal exam: Deferred - exam: Deferred - Extremities Extremities exam: Normal inspection, Full ROM, Normal capillary refill. negative: Tenderness - Back Back exam: Reports: Normal inspection, Full ROM. Denies: Muscle spasm, Rash noted, Tenderness - Neurological Neurological exam: Alert, Normal gait, Oriented X3 - Psychiatric Psychiatric exam: Normal affect, Normal mood. negative: Agitated, Anxious - Skin Skin exam: Dry, Intact, Normal color, Warm Hospitalization - Hospitalization Admission Diagnosis: Rotavirus diarrhea, dehydration - Problem List/Discharge Diagnosis (1) Rotavirus enteritis Status: Acute Base Code: A08.0 - ROTAVIRAL ENTERITIS Comment: 12/30/16- Improved. She had normal BM today and nausea has resolved. "Feeling 100% better. " She denies any abdominal pain. Tolerated clear liquid diet and solid food for lunch with no further nausea or diarrhea. Ct abdomen findings consistent wtih mesenteric adenitis and stool was rotavirus positive. -patient very eager to get home to be with daughter who is in town for short period. counseled patient x15 minutes about her diagnosis and how her electrolytes haven't completely normalized and that she will need to return to ED at any point she has return of her diarrhea as it could cause further electrolyte changes. she voiced her understanding. she has follow up with her pcp already scheduled for Monday of next week. -will discharge today and have her continue to advance diet as tolerating -outpatient lab orders given to patient to have cmp completed prior to her pcp follow up -follow up with pcp on monday as scheduled and return to ED should symptoms return (2) Electrolyte abnormality Status: Acute Base Code: E87.8 - OTH DISORDERS OF ELECTROLYTE AND FLUID BALANCE, NEC Comment: 12/30/16-improved. Sodium 136 up from 132. bicarb improved slightly to 16.3. suspect this will continue to improve now that diarrhea has subsided. -continue to advance diet -patient has follow up wtih pcp vasiliy on monday. will plan to give order for outpatient labs to be done prior to that appointment. (3) Diabetes mellitus type 2, noninsulin dependent Status: Acute Base Code: E11.9 - TYPE 2 DIABETES MELLITUS WITHOUT COMPLICATIONS Comment: 12/30/16- Will continue to hold metformin at this time to avoid exacerbating GI symptoms. -Will have her re-start metformin once she is tolerating full diet again. (4) Full code status Status: Acute Base Code: Z78.9 - OTHER SPECIFIED HEALTH STATUS Comment: - patient remains full code (5) DVT prophylaxis Status: Acute Base Code: [id number] - Comment: 12/30/16- Patient at increased risk with age and restricted mobility. -will order lovenox 40mg sq daily - Hospitalization Course Disposition: Home, Self-Care Hospital Course: 61yo female with CC of diarrhea with nausea. She has history of htn, high cholesterol, t2dm. Patient presented to the ED with persistent diarrhea and vomiting since Monday. She had been seen the previous day in the ED and found to be rotavirus positive. she was sent home with phenergan but was not able to tolerate clear liquids and diarrhea continued to be uncontrolled so returned to ED today. While in the ED, patient had vitals within normal range. Her CBC was unremarkable. CMP showed persistently low bicarb at 16.2. Sodium had improved to 136 from the previous day (132). CT abdomen showed some changes consistent with enteritis. She was given zofran and started on IV fluid resuscitation with dextrose 5% with LR at 125cc/hr and admitted for dehydration 2/2 rotavirus enteritis. 12/30/16- She states she is feeling 100% better today. Says she had a normal bowel movement this morning for the first time in 5 days. She is no longer nauseated and was able to eat all of her clear liquid breakfast. She denies any vomiting, abdominal pain, sweating, or weakness. No one else is sick at home. She had not been able to take any of her medications the past few days due to the nausea. says the zofran seems to be working a lot better than the phenergan. Has an appointment scheduled with her pcp next Monday. Abnormal Labs: Abnormal Lab Results 12/30/16 Range/Units 06:21 Chloride 110 H (98-107) mmol/L Carbon Dioxide 16.3 L (22-30) mmol/L Calcium 7.7 L (8.5-10.1) mg/dL ALT 56 H (9-52) U/L Total Protein 5.6 L (6.3-8.2) gm/dL Albumin 3.0 L (3.5-5.0) gm/dL Condition at Discharge: (2) Stable Discharge Medications - Discharge Medications Prescriptions: Cyclobenzaprine HCl [Flexeril] 10 mg PO QHS PRN #10 tab PRN Reason: Spasms Ondansetron [Zofran Odt] 4 mg PO Q8H PRN #20 tab.rapdis PRN Reason: Nausea Home Medications: Ambulatory Orders Aspirin [Aspirin EC] 81 mg PO DAILY 08/20/14 [Last Taken 12/27/16] Atorvastatin Calcium [Lipitor] 10 mg PO DAILY 08/20/14 [Last Taken 12/27/16] Olmesartan/Hydrochlorothiazide [Benicar Hct 20-12.5 mg Tablet] 0.5 each PO DAILY #30 tablet 04/08/15 [Last Taken 12/27/16] Metformin HCl [Glucophage Ir] 500 mg PO DAILYWM 07/17/16 [Last Taken 12/27/16] Cyclobenzaprine HCl [Flexeril] 10 mg PO QHS PRN #10 tab 12/30/16 [Last Taken Unknown] Ondansetron [Zofran Odt] 4 mg PO Q8H PRN #20 tab.rapdis 12/30/16 [Last Taken Unknown] Discharge Plan - Discharge Instructions Activity at Discharge: Resume Usual Activities As Tolerated Diet at Discharge: Advance to Usual Diet, Diabetic Diet Instructions: Rotavirus Infection (DC) Additional Instructions: Continue to advance your diet as tolerating Hold metformin until back to regular diet to avoid exacerbating GI symptoms May use zofran 4mg as needed every 8 hours for nausea Follow up with Primary care physician on Monday as scheduled Please have labs done here on Monday prior to that appointment Return to ED for any new or worsening symptoms Activity as tolerated.
== END 2016-12-30 13:50 | disposition home or self-care (01) ==
LOC: ER 22:13 → INTOOBSV 12-30 00:56 → MEDSURG 12-30 00:56
PROVIDERS: ADMIT Family Medicine; ATTEND Family Medicine
DX: A08.0 Rotaviral enteritis (principal); E87.8 Other disorders of electrolyte and fluid balance, not elsewhere classified; E11.9 Type 2 diabetes mellitus without complications; Z79.84 Long term (current) use of oral hypoglycemic drugs; Z78.9 Other specified health status
CPT/HCPCS: 99285 ×2; 96374; 96375; 96361; 83735; 85025; 80053 ×2; 74176; G0378; J2405; J1170; J2270; 99236; J7030; J7120